=== PATIENT | female | born 1940 | race Native Hawaiian/Other Pacific Islander ===

== ENCOUNTER 2020-08-02 18:24 | Emergency (ER) | payer OTHER ==
[~2020-08-02] VITALS: Ht 162.6 cm; Wt 50.3 kg
[2020-08-02 19:11] LABS: PLATELET COUNT 258 K/uL (152-353)
[2020-08-02 19:21] LABS: POTASSIUM 3.8 mmol/L (3.6-5.2)
[2020-08-02 20:22] VITALS: BP 134/88; TEMP 98.3
[2020-08-02] MEDS ORDERED: ASPIRIN EC PO (21:50)
[2020-08-02] MEDS ORDERED: BUSP5TAB2 PO (21:50)
[2020-08-02] MEDS ORDERED: CARBAMAZEPIN100 MG PO ×2 (21:56→21:57)
[2020-08-02] MEDS ORDERED: DONE5TAB PO (21:58)
[2020-08-02] MEDS ORDERED: LOSA50TA PO (21:58)
[2020-08-02] MEDS ORDERED: METOPROLOL25 M1 PO (21:59)
[2020-08-02] MEDS ORDERED: PANTOPRAZOLE 40MG TA PO (22:00)
[2020-08-02] MEDS ORDERED: REMERON SOLTAB15 MG PO (22:00)
[2020-08-02] MEDS ORDERED: VITAMIN B-121000 MC2 PO (22:01)
[2020-08-02] MEDS ORDERED: VITAMIN D32000 UNI1 PO (22:03)
[2020-08-02] MEDS ORDERED: WARF2TAB7 PO (22:04)
[2020-08-02] MEDS ORDERED: TYLENOL325 MG PO (22:06)
[2020-08-02] MEDS ORDERED: MELATONIN3 M1 PO (22:07)
[2020-08-02] MEDS ORDERED: AMLODIPINE BESYLATE PO (22:09)
== END 2020-08-02 20:22 | disposition other institution (70) ==
LOC: ED 18:24
PROVIDERS: Family Medicine
DX: F03.91 Unspecified dementia, unspecified severity, with behavioral disturbance (principal); R41.0 Disorientation, unspecified; N39.0 Urinary tract infection, site not specified; Z11.52 Encounter for screening for COVID-19; Z04.6 Encounter for general psychiatric examination, requested by authority
CPT/HCPCS: 36415; 80053; 81000; 85027; 87086; 87088; 87635; 93005; 96372; 99283; J0696; U0003